=== PATIENT | female | born 1970 | race Caucasian/White ===

== ENCOUNTER 2020-09-13 10:31 | Day surgery (SDC) | payer OTHER ==
[2020-09-11 16:07] VITALS: BMI 24.0
[~2020-09-13 10:31] MED LIST: LACTATED RINGERS 1,000 ML IV SCH
[2020-09-13 10:59] VITALS: RESP 16; TEMP 96.9
[2020-09-13] MEDS ORDERED: LIDOCAINE 1% (10MG/ML) FOR IV START INTRADERMA ONE (11:04)
[2020-09-13] MEDS ORDERED: LIDOCAINE 1% INJ 10MG/ML (20 ML MDV) ONE (11:44)
[2020-09-13] MEDS ORDERED: PROPOFOL 10 MG/ML 20 ML VIAL IV ONE (11:44)
[2020-09-13] MEDS ORDERED: GLUCAGON 1 MG/ML VIAL ONE (11:44)
--- NOTE | 2020-09-13 11:51 | P.GSHP ---
History of Present Illness H&P Date: 09/13/20 Chief Complaint: Screening colonoscopy This a 49-year-old female who presents today for screening colonoscopy. Patient states she's had issues with constipation. Past Medical History Additional Past Medical History / Comment(s): States has irregular heart rate. Pain in R side and bloating. History of Any Multi-Drug Resistant Organisms: None Reported Past Surgical History: Hysterectomy Additional Past Surgical History / Comment(s): Repair vaginal tear. Additional Past Anesthesia/Blood Transfusion Reaction / Comment(s): Slow to wake up. Smoking Status: Former smoker - Past Family History Mother Family Medical History: Diabetes Mellitus Medications and Allergies Home Medications Medication Instructions Recorded Confirmed Type No Known Home Medications 09/11/20 09/11/20 History Allergies Allergy/AdvReac Type Severity Reaction Status Date / Time latex Allergy Rash/Hives Verified 09/11/20 15:52 Sulfa (Sulfonamide Allergy Anaphylaxis Verified 09/11/20 15:51 Antibiotics) Surgical - Exam Vital Signs Temp Pulse Resp BP Pulse Ox 96.9 F L 74 16 123/70 98 09/13/20 10:55 09/13/20 10:55 09/13/20 10:55 09/13/20 10:55 09/13/20 10:55 - General well developed, well nourished, no distress - Eyes PERRL - ENT normal pinna - Neck no masses - Respiratory normal expansion - Cardiovascular Rhythm: regular - Abdomen Abdomen: soft, non tender Assessment and Plan Assessment: We'll perform screening colonoscopy.
--- NOTE | 2020-09-13 12:12 | P.OP ---
Date of Procedure: 09/13/20 Preoperative Diagnosis: Screening colonoscopy Postoperative Diagnosis: Normal colonoscopy Procedure(s) Performed: Colonoscopy Anesthesia: MAC Surgeon: Richardson Anderson Pathology: none sent Condition: stable Disposition: PACU Description of Procedure: The patient's placed on the endoscopy table in the lateral position. She received IV sedation. Digital rectal exam was performed which revealed no abnormalities. The flexible colonoscope was then placed patient anus passed throughout the entire colon. The ileocecal valve was visualized. The cecum, ascending and transverse colon appeared normal. The descending and sigmoid colon appeared normal. The scope was then brought back the rectum and this appeared normal. Scope was withdrawn for patient.
[2020-09-13 12:26] VITALS: BP 137/74; PULSE 51
== END 2020-09-13 12:42 | disposition home or self-care (01) ==
LOC: ORWHC2ENDO 10:31
PROVIDERS: ATTEND Surgery
DX: K59.00 Constipation, unspecified (principal); Z88.2 Allergy status to sulfonamides; Z91.040 Latex allergy status; Z90.710 Acquired absence of both cervix and uterus; Z87.891 Personal history of nicotine dependence; Z98.890 Other specified postprocedural states; Z83.3 Family history of diabetes mellitus
CPT/HCPCS: 45378; J1610; J2001; J2704

== ENCOUNTER → 2020-09-16 | Outpatient (CLI) | payer OTHER ==
--- NOTE | 2020-09-16 14:13 | CT ---
EXAMINATION TYPE: CT abdomen pelvis w con DATE OF EXAM: 09/16/2020 COMPARISON: None HISTORY: Generalized pain and bloating CT DLP: 454.9 mGycm CONTRAST: CT scan of the abdomen and pelvis is performed with Oral Contrast and with IV Contrast, patient injec samantha with 100 mL of Isovue 300. FINDINGS: LUNG BASES-: No visible nodule. No infiltrate. LIVER/GB: No calcified gallstones. No space occupying hepatic lesion. Biliary tree is of normal ca liber. PANCREAS: No inflammation. No distinct mass. SPLEEN: No splenic enlargement. No lesion seen. ADRENALS: No nodule. No thickening. KIDNEYS/BLADDER: No hydronephrosis. No nephrolithiasis. No distinct renal mass. Urinary bladder g rossly unremarkable. BOWEL: Normal appendix. Normal bowel caliber. No inflammation. Scattered sigmoid diverticulosis. No evidence for diverticulitis. Mild wall thickening of the sigmoid colon may reflect nonspecific colit is. The remainder of the colon and small bowel are of normal caliber. GENITAL ORGANS: No gross abnormality. LYMPH NODES: No greater than 1cm abdominal or pelvic lymph nodes are appreciated. AORTA: No significant abnormality. OSSEOUS STRUCTURES: No significant abnormality is seen. OTHER: No significant additional abnormality is seen. IMPRESSION: 1. Mild wall thickening of the sigmoid colon may reflect nonspecific colitis.
== END | disposition home or self-care (01) ==
LOC: RADCTMAIN 11:58
PROVIDERS: ATTEND Family Medicine
DX: K63.89 Other specified diseases of intestine (principal); Z88.2 Allergy status to sulfonamides
CPT/HCPCS: 74177; Q9967

== ENCOUNTER → 2023-03-04 | Outpatient (CLI) | payer OTHER ==
--- NOTE | 2023-03-04 18:17 | CA ---
Exercise Stress Test Report Name: Mitzy Christiansen Exam Date: 03/04/2023 11:12 Exam Location: [facility] Ht (in): 64 Wt (lb): 139 BSA: 1.68 Ordering Phys: Dara Santos DO Referring Phys: Zenobia Varma PAC Technologist: Armin Goode Age: 52 Gender: F : 1970 Procedure CPT: Indications: I47.1 I20.8 ICD-10 Codes: Patient History: Chest pressure and shortness of breath Medications: Meds past 24 hrs: Pretest Chest Pain: STRESS TEST Clifford Protocol Exercise Duration (min:sec): 06:[address] Depressions (mm): 0 Angina Score: 0 Perrin Score: 6 Resting HR (bpm): 66 Peak HR (bpm): 141 Resting BP (mmHg): 127 / 97 Peak BP (mmHg): 189 / 82 MPHR: 166 Target HR: 141 % MPHR: 85 METS: 7.1 Total Dose: Peak Dose: Atropine: Double Product: 41272 BP Response: Normal Resting Blood Pressure - Appropriate Stress Termination: Reached target heart rate Stress Symptoms: Dyspnea Stress Summary: The patient's target heart rate was achieved, The hemodynamic response to exercise was normal ECG ANALYSIS Resting ECG: Sinus rhythm. Normal conduction. No arrhythmias. Normal repolarization. Stress ECG: No ECG evidence of ischemia with exercise. CONCLUSIONS Patient falls into low-risk group (DTS >= +5). This associates the patient with an annual CV mortality <= 0.5%. 1. Average exercise tolerance 2. Normal electrocardiographic response to exercise with no evidence of stress induced ischemia Dr. Hilario Cope MD (Electronically Signed) Final Date: 04 March 2023 18:16
== END | disposition home or self-care (01) ==
LOC: RADNMMAIN 10:31
PROVIDERS: ATTEND Family Medicine
DX: I20.8 Other forms of angina pectoris (principal); I47.1 Supraventricular tachycardia
CPT/HCPCS: 93017

== ENCOUNTER 2023-09-13 08:42 | Day surgery (SDC) | payer OTHER ==
[2023-09-08 13:51] VITALS: BMI 25.7
[2023-09-13 09:19] VITALS: TEMP 97.1
[2023-09-13] MEDS ORDERED: LIDOCAINE 1% INJ 10MG/ML (20 ML MDV) ONE (10:03)
[2023-09-13] MEDS ORDERED: PROPOFOL 10 MG/ML 20 ML VIAL IV ONE (10:03)
--- NOTE | 2023-09-13 10:06 | P.GSHP ---
History of Present Illness H&P Date: 09/13/23 Chief Complaint: Epigastric ic pain 52-year-old female complains of epigastric pain clinical smokes today for EGD. Past Medical History Additional Past Medical History / Comment(s): States has irregular heart rate. Pain in R side and bloating. History of Any Multi-Drug Resistant Organisms: None Reported Past Surgical History: Hysterectomy Additional Past Surgical History / Comment(s): Repair vaginal tear. COLONOSCOPY Additional Past Anesthesia/Blood Transfusion Reaction / Comment(s): Slow to wake up. Smoking Status: Former smoker - Past Family History Mother Family Medical History: Diabetes Mellitus Medications and Allergies Home Medications Medication Instructions Recorded Confirmed Type No Known Home Medications 09/11/20 09/08/23 History Allergies Allergy/AdvReac Type Severity Reaction Status Date / Time latex Allergy Rash/Hives Verified 09/13/23 09:01 Sulfa (Sulfonamide Allergy Anaphylaxis Verified 09/13/23 09:01 Antibiotics) Surgical - Exam Vital Signs Temp Pulse Resp BP Pulse Ox 97.1 F L 70 16 128/74 98 09/13/23 08:58 09/13/23 08:58 09/13/23 08:58 09/13/23 08:58 09/13/23 08:58 - General well developed, well nourished, no distress - Eyes PERRL - ENT normal pinna - Neck no masses - Respiratory normal expansion - Cardiovascular Rhythm: regular - Abdomen Abdomen: soft, non tender Assessment and Plan Assessment: G epigastric pain. Will perform EGD.
--- NOTE | 2023-09-13 10:15 | P.OP ---
Date of Procedure: 09/13/23 Preoperative Diagnosis: Epigastric pain Postoperative Diagnosis: Mild antral gastritis Procedure(s) Performed: EGD Anesthesia: MAC Surgeon: Richardson Anderson Pathology: other (Antrum) Condition: stable Disposition: PACU Description of Procedure: Patient was placed on the endoscopy table in the lateral position. She received IV sedation. The gastro/oropharynx passed in the esophagus of the stomach. Scope was then placed through the pylorus. The first and second portion of the duodenum appeared normal. Scope was then brought back to the antrum and this appeared mildly inflamed. A biopsy was performed. The scope was then retroflexed in the remainder of the stomach appeared normal. The GE junction was at 40 cm. The distal esophagus appeared no fully inflamed. A biopsy was performed. The proximal esophagus appeared normal. The scope was withdrawn from the patient.
[2023-09-13 11:15] VITALS: BP 131/81; PULSE 77; RESP 17
== END 2023-09-13 11:43 | disposition home or self-care (01) ==
LOC: ORWHC2ENDO 08:42
PROVIDERS: ATTEND Surgery
DX: K31.89 Other diseases of stomach and duodenum (principal); K29.50 Unspecified chronic gastritis without bleeding; Z90.710 Acquired absence of both cervix and uterus; Z87.891 Personal history of nicotine dependence; Z83.3 Family history of diabetes mellitus; Z91.040 Latex allergy status; Z88.2 Allergy status to sulfonamides; Z98.890 Other specified postprocedural states
CPT/HCPCS: 88305; 43239; J2001; J2704

== ENCOUNTER → 2023-09-14 | Outpatient (CLI) | payer OTHER ==
--- NOTE | 2023-09-14 13:03 | NM ---
EXAMINATION TYPE: NM hepatobiliary w CCK DATE OF EXAM: 09/14/2023 12:53 PM COMPARISON: CT abdomen pelvis most recent from 09/16/2020 CLINICAL INDICATION:Female, 52 years old with history of R10.13 EPIGASTRIC PAIN; TECHNIQUE: The patient was given 4.78 mCi of Technetium 99m-Mebrofenin as a radiotracer and multiple scintigraphic images were obtained of the abdomen. Gallbladder function was also assessed after the administration of ensure drink and additional scintigraphic images were obtained of the abdomen. A re gion of interest was drawn over the gallbladder and a timing activity curve was generated. The gallbl adder ejection fraction was calculated. FINDINGS: Normal uptake of radiotracer was identified within the liver with excretion into the hepatic and comm on biliary ducts . There was normal progressive washout of the liver over the course of the study. Ra diotracer uptake within the gallbladder at 8 minutes as well as small bowel activity was identified a t 14 minutes. Maximum calculated gallbladder ejection fraction is: 78% at 29 minutes (Normal gallbladder ejection fraction is > 35%) IMPRESSION: 1. Normal hepatobiliary scan. 2. Normal ejection fraction.
== END | disposition home or self-care (01) ==
LOC: RADNMMAIN 08:26
PROVIDERS: ATTEND Surgery
DX: R10.13 Epigastric pain (principal)
CPT/HCPCS: 78227; A9537; J2805